=== PATIENT | male | born 1960 | race African-American/Black ===

== ENCOUNTER 2023-08-07 10:05 | Day surgery (SDC) | payer OTHER ==
[2023-08-02 12:10] VITALS: BMI 28.8
[2023-08-07] MEDS: PHENYLEPHRINE 2.5% OPTHALMIC DROP 2ML BOTTLE ONE ×3 (10:35→10:45)
[2023-08-07] MEDS: TROPICAMIDE 1% OPHTH SOLN 15 ML BOTTLE ONE ×3 (10:35→10:45)
[2023-08-07] MEDS: CYCLOPENTOLATE 2% OPHTH SOLN 2 ML BOTTLE ONE ×3 (10:35→10:45)
[2023-08-07] MEDS: CIPROFLOXACIN HCL 0.3% OPHTH 2.5ML BOTTLE ONE ×3 (10:35→10:45)
[2023-08-07 10:36] VITALS: RESP 16
[2023-08-07] MEDS ORDERED: MIDAZOLAM HCL 2 MG/2 ML SINGLE DOSE VIAL ONE (12:05)
[2023-08-07] MEDS ORDERED: ONDANSETRON 4 MG/2 ML VIAL ONE (12:05)
[2023-08-07 12:38] VITALS: BP 142/92; PULSE 78; TEMP 97.4
== END 2023-08-07 13:05 | disposition home or self-care (01) ==
LOC: FASU 10:05
PROVIDERS: ATTEND Ophthalmology
PROC: 08RK3JZ Replacement of Left Lens with Synthetic Substitute, Percutaneous Approach (ICD-10-PCS; principal; 2023-08-07 12:08)
DX: H26.8 Other specified cataract (principal)
CPT/HCPCS: 66984; V2632

== ENCOUNTER 2025-06-23 10:12 | Day surgery (SDC) | payer OTHER ==
[2025-06-18 15:06] VITALS: BMI 27.4
[2025-06-23] MEDS: CIPROFLOXACIN 0.3% EYE DROPS 5 ML BOTTLE ONE (10:45)
[2025-06-23] MEDS: TROPICAMIDE 1% OPHTH SOLN 15 ML BOTTLE ONE (10:45)
[2025-06-23] MEDS: CYCLOPENTOLATE 2% OPHTH SOLN 2 ML BOTTLE ONE (10:45)
[2025-06-23] MEDS: PHENYLEPHRINE 2.5% OPTHALMIC DROP 2ML BOTTLE ONE (10:45)
[2025-06-23] MEDS ORDERED: LIDOCAINE 1% P/F 10 MG/ML VIAL ONE (11:43)
[2025-06-23] MEDS ORDERED: BSS (NA/CA/MG/K) BALANCED SALT SOLUTION OPHTH SOLN 15 ML BOTTLE ONE (11:43)
[2025-06-23] MEDS ORDERED: NEO/POLYMYX B SULF/DEXAMETH OPHTHALMIC 5ML BOTTLE ONE (11:43)
[2025-06-23] MEDS ORDERED: TETRACAINE 0.5% OPHTH SOLN 2 ML BOTTLE ONE (11:43)
[2025-06-23] MEDS ORDERED: MIDAZOLAM HCL 2 MG/2 ML SINGLE DOSE VIAL ONE (12:45)
[2025-06-23 14:26] VITALS: BP 134/77; PULSE 65; RESP 19; TEMP 97.2
== END 2025-06-23 14:23 | disposition home or self-care (01) ==
LOC: FASU 10:12
PROVIDERS: ATTEND Ophthalmology
PROC: 08RJ3JZ Replacement of Right Lens with Synthetic Substitute, Percutaneous Approach (ICD-10-PCS; principal; 2025-06-23 13:04)
DX: H26.8 Other specified cataract (principal)
CPT/HCPCS: 66984; V2632